=== PATIENT | female | born 1970 ===

== ENCOUNTER 2018-07-21 14:31 | Emergency (ER) | payer OTHER ==
[~2018-07-21] VITALS: Ht 154.9 cm; Wt 139.3 kg
[~2018-07-21 14:31] MED LIST: AMOX1TAB12 PO; BENADRYL25 MG PO; CATAFLAM50 MG PO
[2018-07-21] MEDS ORDERED: TOPROL XL50 M1 (15:12)
== END 2018-07-21 17:51 | disposition home or self-care (01) ==
LOC: ER 14:31
DX: M62.830 Muscle spasm of back (principal)

== ENCOUNTER 2019-03-03 12:24 | Emergency (ER) | payer OTHER ==
[~2019-03-03] VITALS: Ht 154.9 cm; Wt 133.8 kg
[~2019-03-03 12:24] MED LIST changes: +TOPROL XL50 M1
[2019-03-03] MEDS ORDERED: COZAAR50 MG (13:17)
== END 2019-03-03 18:10 | disposition home or self-care (01) ==
LOC: ER 12:24
DX: I10 Essential (primary) hypertension (principal); R10.84 Generalized abdominal pain